=== PATIENT | female | born 1960 ===

== ENCOUNTER 2020-06-26 07:45 | Outpatient (REF) | payer OTHER, SELFPAY ==
--- NOTE | ~2020-06-26 | MM_ITS ---
EXAMINATION: MM SCREENING DIGITAL BREAST TOMOSYNTHESIS, BILATERAL CLINICAL INFORMATION: Screening. Asymptomatic. The lifetime risk of breast cancer based on the Tyrer-Cuzick Model is 5%. COMPARISON: Mammography: 06/21/2019, 03/04/2018, 02/05/2017 TECHNIQUE: Digital breast tomosynthesis is performed in both the craniocaudal and mediolateral oblique views along with computer-aided detection (CAD). Synthesized 2D images are generated from the tomosynthesis. FINDINGS: There are scattered areas of fibroglandular density (ACR BI-RADS breast composition Category b). There are no significant masses, abnormal calcifications, or other abnormalities. Parenchymal pattern is similar to prior studies. No significant changes. MM/MM tomosynthesis screening BI IMPRESSION: No mammographic evidence of malignancy. ASSESSMENT: BI-RADS 1: Negative RECOMMENDATION: Routine annual mammography screening. This patient's information was entered into a reminder system with a target due date for their next mammogram.
== END 2020-06-26 07:46 | disposition home or self-care (01) ==
LOC: HO.MAMMO 07:45
PROVIDERS: PCP Internal Medicine; Visit Provider Internal Medicine
DX: Z12.31 Encounter for screening mammogram for malignant neoplasm of breast (principal)
CPT/HCPCS: 77063; 77067

== ENCOUNTER 2020-08-09 07:35 | Outpatient (REF) | payer OTHER, SELFPAY ==
[2020-08-09 10:12] LABS: MANUAL DIFF FLAG NO
[2020-08-09 10:17] LABS: Basophils Percent Auto 0.4 % (0-2); Eosinophils Absolute Auto 0.2 X10*3/uL (0.0-0.4); Hematocrit 36.4 % (37-47); Hemoglobin 11.8 g/dl (12.0-16.0); Imm Gran Abs Auto 0.02 X10*3/uL (0.00-0.03); Imm Gran Pct Auto 0.3 % (0.0-0.4); Lymphocytes Absolute Auto 2.1 X10*3/uL (1.2-4.9); Lymphocytes Percent Auto 28.8 % (20-40); Mean Corpuscular HGB Conc 32.4 g/dl (31.0-35.0); Mean Corpuscular Volume 89.4 fL (80-98); Mean Platelet Volume 10.4 fL (9.4-12.3); Monocytes Absolute Auto 0.6 X10*3/uL (0.1-1.2); Monocytes Percent Auto 8.2 % (2-11); Neutrophils Absolute Auto 4.3 X10*3/uL (2.0-8.3); Neutrophils Percent Auto 59.3 % (45-73); Platelet Count 318 X10*3/uL (160-400); Red Blood Count 4.07 X10*6/uL (4.20-5.50); Red Cell Distribution Width 12.4 % (11.0-16.0); White Blood Count 7.3 X10*3/uL (4.8-10.8)
[2020-08-09 10:36] LABS: Alanine Aminotransferase 15 U/L (0-31); Albumin Level 4.2 g/dL (3.5-5.0); Alkaline Phosphatase 84 U/L (39-117); Anion Gap 11 (12-20); Aspartate Amino Transferase 18 U/L (5-31); Blood Urea Nitrogen 13 mg/dL (9-16); Calcium 9.3 mg/dL (8.4-10.2); Carbon Dioxide 27 mmol/L (22-29); Chloride 107 mmol/L (96-108); Cholesterol 135 mg/dL; Estimated Glomerular Filt Rate > 60; Glucose Random 91 mg/dL (60-115); HDL Cholesterol 43 mg/dL; LDL Cholesterol Calculated 78 mg/dl; Potassium 4.1 mmol/L (3.3-5.1); Sodium 141 mmol/L (135-145); Triglycerides 73 mg/dL
[2020-08-09 10:59] LABS: Free T4 (Free Thyroxine) 1.03 ng/dL (0.71-1.85); Vitamin D 25-OH Total 57.6 ng/mL (>30)
[2020-08-09 11:07] LABS: Folate > 20.0 ng/mL (> or = 4.0); Vitamin B12 1897 pg/mL (200-900)
== END 2020-08-09 07:36 | disposition home or self-care (01) ==
LOC: HO.10HDL 07:35
PROVIDERS: Visit Provider Internal Medicine
DX: E78.00 Pure hypercholesterolemia, unspecified (principal)
CPT/HCPCS: 36415; 80053; 80061; 82306; 82607; 82746; 84439; 84443; 85025

== ENCOUNTER 2020-08-14 13:32 | Outpatient (REF) | payer OTHER, SELFPAY ==
[2020-08-15 09:08] LABS: BV Int Neg Control Negative (Negative); BV Int Pos Control Positive (Positive)
== END 2020-08-14 13:33 | disposition home or self-care (01) ==
LOC: HO.LAB 13:32
PROVIDERS: Visit Provider Internal Medicine
DX: Z12.4 Encounter for screening for malignant neoplasm of cervix (principal)
CPT/HCPCS: 87480; 87510; 87660; 88142

== ENCOUNTER 2020-08-23 07:58 | Outpatient (REF) | payer OTHER, SELFPAY ==
--- NOTE | ~2020-08-23 | XR_ITS ---
EXAMINATION: XR SHOULDER, RIGHT CLINICAL INFORMATION: Adhesive capsulitis of unspecified shoulder. COMPARISON: Right shoulder 08/23/2020 TECHNIQUE: AP external rotation, Grashey, scapular Y, and axillary views of the right shoulder. FINDINGS: There is mild reduction of glenohumeral joint space without any visible acute fracture, dislocation or subluxation. Minimal spurring seen in the right AC joint. No loose bodies or bony erosive changes. No acute fracture or subluxation. XR/XR shoulder RT min 2V IMPRESSION: All loss of glenohumeral and AC joint space with periarticular spurring. No acute fracture, loose bodies or joint effusion suspected.
== END 2020-08-23 07:59 | disposition home or self-care (01) ==
LOC: HO.XRAY 07:58
PROVIDERS: PCP Internal Medicine; Visit Provider Internal Medicine
DX: M75.00 Adhesive capsulitis of unspecified shoulder (principal)
CPT/HCPCS: 73030

== ENCOUNTER 2020-08-26 08:12 | Outpatient (REF) | payer OTHER, SELFPAY ==
--- NOTE | ~2020-08-26 | XR_ITS ---
EXAMINATION: XR SHOULDER, RIGHT CLINICAL INFORMATION: Adhesive capsulitis of unspecified shoulder. COMPARISON: Right shoulder 08/23/2020 TECHNIQUE: AP external rotation, Grashey, scapular Y, and axillary views of the right shoulder. FINDINGS: There is mild reduction of glenohumeral joint space without any visible acute fracture, dislocation or subluxation. Minimal spurring seen in the right AC joint. No loose bodies or bony erosive changes. No acute fracture or subluxation. XR/XR shoulder RT min 2V IMPRESSION: All loss of glenohumeral and AC joint space with periarticular spurring. No acute fracture, loose bodies or joint effusion suspected.
== END 2020-08-26 08:13 | disposition home or self-care (01) ==
LOC: HO.HOSX 08:12
PROVIDERS: PCP Internal Medicine; Visit Provider Orthopaedic Surgery
DX: M75.01 Adhesive capsulitis of right shoulder (principal); M25.511 Pain in right shoulder; E66.3 Overweight; E78.00 Pure hypercholesterolemia, unspecified; E55.9 Vitamin D deficiency, unspecified; Z88.8 Allergy status to other drugs, medicaments and biological substances; Z68.26 Body mass index [BMI] 26.0-26.9, adult; Z98.51 Tubal ligation status
CPT/HCPCS: 20610; 73030; J1100

== ENCOUNTER 2020-09-27 08:26 | Outpatient (REF) | payer OTHER, SELFPAY ==
[2020-09-27 10:18] LABS: MANUAL DIFF FLAG NO
[2020-09-27 10:21] LABS: Basophils Percent Auto 0.4 % (0-2); Eosinophils Absolute Auto 0.5 X10*3/uL (0.0-0.4); Eosinophils Percent Auto 7.1 % (0-4); Hematocrit 36.3 % (37-47); Hemoglobin 11.9 g/dl (12.0-16.0); Imm Gran Abs Auto 0.01 X10*3/uL (0.00-0.03); Imm Gran Pct Auto 0.1 % (0.0-0.4); Immature Retic Fraction 4.9 % (3.0-15.9); Lymphocytes Absolute Auto 1.9 X10*3/uL (1.2-4.9); Lymphocytes Percent Auto 27.3 % (20-40); Mean Corpuscular HGB Conc 32.8 g/dl (31.0-35.0); Mean Corpuscular Hemoglobin 29.1 pg (27.0-33.0); Mean Corpuscular Volume 88.8 fL (80-98); Mean Platelet Volume 9.9 fL (9.4-12.3); Monocytes Absolute Auto 0.6 X10*3/uL (0.1-1.2); Monocytes Percent Auto 8.9 % (2-11); Neutrophils Absolute Auto 3.9 X10*3/uL (2.0-8.3); Neutrophils Percent Auto 56.2 % (45-73); Platelet Count 328 X10*3/uL (160-400); Red Blood Count 4.09 X10*6/uL (4.20-5.50); Red Cell Distribution Width 12.8 % (11.0-16.0); Retic HGB Equivalent 32.7 pg (30.0-35.0); Reticulocyte Percent 1.7 % (0.5-1.8); Reticulocytes Absolute 0.068 X10*6/uL (0.026-0.095)
[2020-09-27 10:45] LABS: Iron 64 mcg/dL (30-160); Percent Iron Saturation 22 % (15-50); Total Iron Binding Capacity 295 mcg/dL (228-428); Unsaturated Iron Binding 231 ug/dL
[2020-09-27 12:07] LABS: Ferritin 120 ng/mL (10-250)
== END 2020-09-27 08:27 | disposition home or self-care (01) ==
LOC: HO.LAB 08:26
PROVIDERS: PCP Internal Medicine; Visit Provider Internal Medicine
DX: D64.9 Anemia, unspecified (principal)
CPT/HCPCS: 36415; 82728; 83540; 85025; 85045

== ENCOUNTER 2020-10-25 08:00 | Outpatient (RCR) | payer OTHER, SELFPAY ==
--- NOTE | 2020-09-09 16:51 | MHC.PT.EP ---
[facility] [place] Office [place] Office [place] Office [address] [phone] F: [phone] F: [phone] F: [phone] F: [phone] Physical Therapy Plan of Care Date of Evaluation: Date of Surgery: NA Diagnosis: RIGHT ADHESIVE CAPSULITIS Assessment: KEYANNA IS A PLEASANT 59 YO FEMALE WITH S/S CONSISTENT WITH ADHESIVE CAPSULITIS. UPON EXAM SHE DEMONSTRATES DECREASED ROM, DECREASED STRENGTH, ALTERED POSTURE AND POSITIONING, INCREASED PAIN. FUNCTIONAL LIMITATION INCLUDE DECREASED ABILITY TO PERFORM LIFTING, REACHING, PUSHING AND PULLING, SHE REPORTS DECREASED PARTICIPATION IN COMMUNITY AND RECREATIONAL TASKS. SHE REPORTS DISRUPTED SLEEP. 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 Manual therapy to restore motion and function. Therapeutic exercise to improve strength and flexibility. Neuromuscular re-education for posture and balance. Therapeutic activities to return to functional activities of daily living. Electronically signed by: LAUREN AGUILAR PT, DPT Please sign and return to therapist. Thank you for your referral.
--- NOTE | 2020-11-15 08:31 | MHC.PT.DC ---
[facility] [place] Office [place] Office [place] Office [address]im [address]vez [address] [phone] F: [phone] F: [phone] F: [phone] F: [phone] Physical Therapy Discharge Report Diagnosis: RIGHT ADHESIVE CAPSULITIS Date of Surgery: NA Date of Evaluation: 09/09/20 Date of Discharge: 10/18/20 Treatments to Date: 11 Cancellations to Date: 0 No Shows to Date: 0 Discharge Status: Achieved Goals Improved Function Independent with HEP Discharge Summary: Adrienne progressed well in PT with shoulder ROM WNLs and significantly improved strength. She demonstrates independence with her home program and is able to self manage residual symptoms. She is discharged at this time. Electronically signed by: Kaity Zuleta PT, DPT Please sign and return to therapist. Thank you for your referral.
== END 2020-11-15 08:33 | disposition home or self-care (01) ==
LOC: HO.PT 08:00
PROVIDERS: PCP Internal Medicine; Visit Provider Orthopaedic Surgery
DX: M75.00 Adhesive capsulitis of unspecified shoulder (principal)
CPT/HCPCS: 97110; 97140; 97162; 97530

== ENCOUNTER 2021-07-11 07:48 | Outpatient (REF) | payer OTHER, SELFPAY ==
--- NOTE | ~2021-07-11 | MM_ITS ---
EXAMINATION: MM SCREENING DIGITAL BREAST TOMOSYNTHESIS, BILATERAL CLINICAL INFORMATION: Screening. Asymptomatic. The lifetime risk of breast cancer based on the Tyrer-Cuzick Model is 6%. COMPARISON: Mammography: 06/26/2020, 06/21/2019, 03/04/2018 TECHNIQUE: Digital breast tomosynthesis is performed in both the craniocaudal and mediolateral oblique views along with computer-aided detection (CAD). Synthesized 2D images are generated from the tomosynthesis. FINDINGS: There are scattered areas of fibroglandular density (ACR BI-RADS breast composition Category b). There are no significant masses, abnormal calcifications, or other abnormalities. The axilla and skin contours are unremarkable. No significant changes. MM/MM tomosynthesis screening BI IMPRESSION: No mammographic evidence of malignancy. ASSESSMENT: BI-RADS 1: Negative RECOMMENDATION: Routine annual mammography screening. This patient's information was entered into a reminder system with a target due date for their next mammogram.
== END 2021-07-11 07:49 | disposition home or self-care (01) ==
LOC: HO.MAMMO 07:48
PROVIDERS: PCP Internal Medicine; Visit Provider Internal Medicine
DX: Z12.31 Encounter for screening mammogram for malignant neoplasm of breast (principal)
CPT/HCPCS: 77063; 77067

== ENCOUNTER 2021-09-05 08:57 | Outpatient (REF) | payer OTHER, SELFPAY ==
[2021-09-05 09:32] LABS: MANUAL DIFF FLAG NO
[2021-09-05 09:50] LABS: Basophils Percent Auto 0.6 % (0-2); Eosinophils Absolute Auto 0.3 X10*3/uL (0.0-0.4); Hematocrit 39.7 % (37.0-47.0); Hemoglobin 12.9 g/dl (12.0-16.0); Imm Gran Abs Auto 0.02 X10*3/uL (0.00-0.03); Imm Gran Pct Auto 0.3 % (0.0-0.4); Immature Retic Fraction 5.6 % (3.0-15.9); Lymphocytes Percent Auto 29.2 % (20-40); Mean Corpuscular HGB Conc 32.5 g/dl (31.0-35.0); Mean Corpuscular Hemoglobin 28.5 pg (27.0-33.0); Mean Corpuscular Volume 87.6 fL (80.0-98.0); Mean Platelet Volume 9.5 fL (9.4-12.3); Monocytes Absolute Auto 0.4 X10*3/uL (0.1-1.2); Monocytes Percent Auto 6.5 % (2-11); Neutrophils Absolute Auto 3.9 x10*3/uL (2.0-8.3); Neutrophils Percent Auto 58.4 % (45-73); Platelet Count 327 X10*3/uL (160-400); Red Blood Count 4.53 X10*6/uL (4.20-5.50); Red Cell Distribution Width 12.1 % (11.0-16.0); Retic HGB Equivalent 33.4 pg (30.0-35.0); Reticulocyte Percent 1.5 % (0.5-1.8); White Blood Count 6.7 X10*3/uL (4.8-10.8)
[2021-09-05 10:40] LABS: Alanine Aminotransferase 22 U/L (0-31); Albumin Level 4.4 g/dL (3.5-5.0); Alkaline Phosphatase 87 U/L (39-117); Anion Gap 13 (12-20); Aspartate Amino Transferase 19 U/L (5-31); Bilirubin Total 0.8 mg/dL (0.0-1.0); Blood Urea Nitrogen 12 mg/dL (9-16); Calcium 9.9 mg/dL (8.4-10.2); Carbon Dioxide 26 mmol/L (22-29); Chloride 105 mmol/L (96-108); Cholesterol 148 mg/dL; Estimated Glomerular Filt Rate > 60; Glucose Random 103 mg/dL (60-115); HDL Cholesterol 41 mg/dL; Iron 79 mcg/dL (30-160); LDL Cholesterol Calculated 91 mg/dl; Percent Iron Saturation 24 % (15-50); Potassium 4.6 mmol/L (3.3-5.1); Sodium 139 mmol/L (135-145); Total Iron Binding Capacity 325 mcg/dL (228-428); Total Protein 7.8 g/dL (6.5-8.0); Triglycerides 80 mg/dL; Unsaturated Iron Binding 246 ug/dL
[2021-09-05 10:51] LABS: Ferritin 147 ng/mL (10-250); Free T4 (Free Thyroxine) 1.09 ng/dL (0.71-1.85); Thyroid Stimulating Hormone 1.56 uIU/mL (0.32-4.0); Vitamin D 25-OH Total 33.8 ng/mL (>30)
[2021-09-05 11:14] LABS: Folate > 20.0 ng/mL (> or = 4.0); Vitamin B12 860 pg/mL (200-900)
== END 2021-09-05 08:58 | disposition home or self-care (01) ==
LOC: HO.LAB 08:57
PROVIDERS: PCP Internal Medicine; Visit Provider Internal Medicine
DX: E78.00 Pure hypercholesterolemia, unspecified (principal); D64.9 Anemia, unspecified
CPT/HCPCS: 36415; 80053; 80061; 82306; 82607; 82728; 82746; 83540; 84439; 84443; 85025; 85045

== ENCOUNTER 2021-10-01 13:12 | Outpatient (REF) | payer OTHER, SELFPAY ==
--- NOTE | ~2021-10-01 | US_ITS ---
EXAMINATION: US SOFT TISSUE HEAD/NECK CLINICAL INFORMATION: Localized swelling, mass and lump, neck. COMPARISON: CT soft tissue neck without contrast 04/01/2017. TECHNIQUE: Linear transducer grayscale and color Doppler examination of the right side neck, behind the ear, indicated by the patient. FINDINGS: In region of where patient points out lump behind the right ear, there are noted to be 2 lymph nodes with one measuring 5 x 3 x 2 mm in size and a second one measuring 3 x 3 x 4 mm in size without evidence of cortical thickening or lobulation. Vascular pedicles are seen. US/US soft tiss head and/or neck IMPRESSION: Palpable abnormalities behind the right ear appear to represent normal-appearing lymph nodes.
== END 2021-10-01 13:13 | disposition home or self-care (01) ==
LOC: HO.US 13:12
PROVIDERS: Visit Provider Internal Medicine
DX: R22.1 Localized swelling, mass and lump, neck (principal)
CPT/HCPCS: 76536

== ENCOUNTER 2022-07-17 07:44 | Outpatient (REF) | payer OTHER, SELFPAY ==
--- NOTE | ~2022-07-17 | MM_ITS ---
EXAMINATION: MM SCREENING DIGITAL BREAST TOMOSYNTHESIS, BILATERAL CLINICAL INFORMATION: Screening. Asymptomatic. The lifetime risk of breast cancer based on the Tyrer-Cuzick Model is 5.7%. COMPARISON: Mammography: July 11, 2021 and studies dating back to January 29, 2016 TECHNIQUE: Digital breast tomosynthesis is performed in both the craniocaudal and mediolateral oblique views along with computer-aided detection (CAD). Synthesized 2D images are generated from the tomosynthesis. FINDINGS: The breasts are heterogeneously dense, which may obscure small masses (ACR BI-RADS breast composition Category c). There are no significant masses, abnormal calcifications, or other abnormalities. MM/MM tomosynthesis screening BI IMPRESSION: No significant changes ASSESSMENT: BI-RADS 1: Negative RECOMMENDATION: Routine annual mammography screening. This patient's information was entered into a reminder system with a target due date for their next mammogram.
== END 2022-07-17 07:45 | disposition home or self-care (01) ==
LOC: HO.MAMMO 07:44
PROVIDERS: Visit Provider Internal Medicine
DX: Z12.31 Encounter for screening mammogram for malignant neoplasm of breast (principal)
CPT/HCPCS: 77063; 77067

== ENCOUNTER → 2022-09-11 07:44 | Outpatient (REF) | payer OTHER, SELFPAY ==
--- NOTE | 2022-09-11 07:48 | CA_ITS ---
Acquisition Time: 2022-09-11 08:05:39 Total Exercise Time: 00:05:37 Test Indications: CP Medications: SEE H Protocol: HARVEY Max HR: 151 BPM 94% of Pred: 160 BPM Max BP: 152/072 mmHG Max Work Load: 7.0 METS Exercise stress test with exercise 5 min 37 sec of Harvey protocol, achieving 94% MPHR, 7 METs, with mild sob, no chest discomfort, with isolated PVCs, with normotensive response to exercise, without changes meeting criteria for ischemia. Test reviewed with Dr Barrios Referred By: Za Dsouza Overread By: SHADI MAY
== END ==
LOC: HO.CARD 07:44
PROVIDERS: PCP Internal Medicine; Visit Provider Internal Medicine
DX: R07.9 Chest pain, unspecified (principal)
CPT/HCPCS: 93017

== ENCOUNTER 2022-11-06 14:44 | Outpatient (AMB) | payer OTHER, SELFPAY ==
[2022-11-06 14:49] VITALS: BP 124/78; PULSE 75; O2SAT 98; BMI 26.9
--- NOTE | 2022-11-06 14:49 | A.OFFPC_ITS ---
Vital Signs 11/06/22 14:49 Height 5 ft 2 in Weight 147 lb BMI 26.9 BP 124/78 Blood Pressure Location Lt brachial Position Sitting Pulse 75 Pulse Source Pulse Oximeter Pulse Oximetry (%) 98 Oxygen Delivery Method Room Air Intake Visit Reasons: Hypercholesterolemia chest pain Allergies simvastatin Allergy (Unknown, Verified 11/06/22 14:49) swelling Medication List - Last Reconciled 11/06/22 by Za Dsouza MD atorvastatin 20 mg PO DAILY multivitamin 1 tab PO DAILY [id number]-[id number] 3.5-10,000-1 mg/mL-unit/mL-% 4 drps otic (ear) right Q8H 10 days Tobacco use date assessed: 09/04/22 Dental Screening Dental Screen Date: 11/06/22 Did you have a dental visit in the last 12 months?: Yes Did you have a dental problem in the last 6 months where you did not have access to dental care?: No Was dental information given to patient?: Patient has dentist HPI Hypercholesterolemia chest pain HPI Details 62-year-old overweight female with hypercholesterolemia having chest pains seen last in September 2022 for physical exam. Workup was requested showing normal blood sugar, vitamin B12 normal renal function normal electrolytes liver function, cholesterol LDL of 76 normal thyroid number normal vitamin-D and normal blood count hemoglobin A1c is normal so stress test revealing negative results [facility] Medical History (Updated 11/06/22 @ 14:54 by Za Dsouza MD) Anemia Cervical cancer screening Frozen shoulder Hypercholesterolemia Neck mass Otitis externa Otitis externa of right ear Overweight (BMI 25.0-29.9) Vitamin D deficiency Surgical History H/O eye surgery H/O tubal ligation History of delivery Family History (Updated 09/04/22 @ 10:01 by Erma Davidson CMA) Father Myocardial infarct Maternal Uncle Myocardial infarct Social History (Updated 08/26/20 @ 08:34 by CHANCE Murphy) Housing: House Alcohol intake: never Patient Tobacco Use Status: Never used Tobacco e-Cigarette/Vaping Use: Never Used Second Hand Smoke Exposure: No service: No Current occupational status: employed Current occupation: left handed Cognitive needs: No Hearing needs: No Vision needs: No Questionnaire PHQ-9 Over the last 2 weeks, how often have you been bothered by any of the following problems? 1. Little interest or pleasure in doing things: not at all 2. Feeling down, depressed, or hopeless: not at all 3. Trouble falling or staying asleep, or sleeping too much: not at all 4. Feeling tired or having little energy: not at all 5. Poor appetite or overeating: not at all 6. Feeling bad about yourself - or that you are a failure or have let yourself or your family down: not at all 7. Trouble concentrating on things, such as reading the newspaper or watching television: not at all 8. Moving or speaking so slowly that other people could have noticed. Or the opposite - being so fidgety or restless that you have been moving around a lot more than usual: not at all 9. Thoughts that you would be better off or of hurting yourself in some way: not at all Total score: 0 Depression Screening Interpretation: Negative Source: Developed by Drs. Milton Murdock, Quintin Corona and colleagues, with an educational joanne from [employer]. Thrive Questionnaire Date Thrive assessed: 09/04/22 AUDIT C Alcohol Use Questionnaire (AUDIT-C) 1. How often do you have a drink containing alcohol?: Never 2. How many drinks containing alcohol do you have on a typical day when you are drinking?: 1 or 2 3. How often do you have six or more drinks on one occasion?: Never Total Score: 0 CHILANGO-7 AMB Questionnaire CHILANGO-7 Date CHILANGO - 7 assessed: 09/04/22 Source: Developed by Drs. Milton Murdock, Quintin Corona and colleagues, with an educational joanne from [employer]. Physical exam (Primary Care) Vital Signs: Last Vital Signs Pulse 75 11/06/22 14:49 BP 124/78 11/06/22 14:49 Pulse Ox 98 11/06/22 14:49 Oxygen Delivery Method Room Air 11/06/22 14:49 BMI result Body Mass Index 26.9 Tobacco/Smoking Status: Tobacco use Status Tobacco use date assessed 09/04/22 11/06/22 14:52 Patient Tobacco Use Status Never used Tobacco 11/06/22 14:52 e-Cigarette/Vaping Use Never Used 11/06/22 14:52 PHQ-9: PHQ-9 Score PHQ-9: Total score 0 11/06/22 14:52 Depression Screening Interpretation: Negative Thrive Assessment: Date of Thrive Assessment Date Thrive assessed 09/04/22 11/06/22 14:52 Const General: alert; No acute distress Eyes Conjunctivae: conjunctivae normal Resp Auscultation: clear to auscultation bilaterally Cardio Rate: regular rate Rhythm: regular rhythm GI Inspection: Yes normal to inspection Extrem General: Yes normal to inspection and No edema Assessment and Plan Assessment & Plan (1) Overweight (BMI 25.0-29.9): Code(s): E66.3 - Overweight Plan: Continue with diet and exercise (2) Hypercholesterolemia: Code(s): E78.00 - Pure hypercholesterolemia, unspecified Plan: Avoid fried foods, chicken skin, eggs, butter margarine, pastries and meat. Be it pork or beef they have a lot of cholesterol patient is on atorvastatin 20 mg once a day LDL goal of less than 130 and triglyceride of less than 150 (3) Chest pain: Comment: Stress test 2022- Code(s): R07.9 - Chest pain, unspecified Plan: Stress test done revealing negative results Coding Level of Care Code Est Pt Level 4 (34493) Diagnoses Overweight (BMI 25.0-29.9) E66.3 Hypercholesterolemia E78.00 Chest pain R07.9
== END 2022-11-06 14:58 | disposition home or self-care (01) ==
PROVIDERS: PCP Internal Medicine; Visit Provider Internal Medicine
DX: E66.3 Overweight (principal); E78.00 Pure hypercholesterolemia, unspecified; R07.9 Chest pain, unspecified
CPT/HCPCS: 99214

== ENCOUNTER 2023-07-30 08:11 | Outpatient (REF) | payer OTHER, SELFPAY | END 2023-07-30 08:12 | disposition home or self-care (01) | LOC: HO.MAMMO 08:11 | PROVIDERS: PCP Internal Medicine; Visit Provider Internal Medicine | DX: Z12.31 Encounter for screening mammogram for malignant neoplasm of breast (principal) | CPT/HCPCS: 77063; 77067 ==

== ENCOUNTER → 2023-07-30 08:30 | Outpatient (BNV) | payer OTHER, SELFPAY | PROVIDERS: PCP Internal Medicine; Visit Provider Radiology Diagnostic Radiology | DX: Z12.31 Encounter for screening mammogram for malignant neoplasm of breast (principal) | CPT/HCPCS: 77063; 77067 ==

== ENCOUNTER 2023-09-10 10:12 | Outpatient (AMB) | payer OTHER, SELFPAY ==
--- NOTE | 2023-09-10 10:45 | MHC.PC.OV ---
Vital Signs 09/10/23 10:46 Height 5 ft 2 in Weight 149 lb BMI 27.2 BP 128/70 Blood Pressure Location Lt brachial Position Sitting Pulse 73 Pulse Source Pulse Oximeter Pulse Oximetry (%) 98 Oxygen Delivery Method Room Air Intake Visit Reasons: Annual exam Allergies simvastatin Allergy (Unknown, Verified 09/10/23 10:46) swelling Medication List - Last Reconciled 09/10/23 by Za Dsouza MD atorvastatin 20 mg PO DAILY multivitamin 1 tab PO DAILY Tobacco use date assessed: 09/10/23 Dental Screening Dental Screen Date: 09/10/23 Did you have a dental visit in the last 12 months?: Yes Did you have a dental problem in the last 6 months where you did not have access to dental care?: No Was dental information given to patient?: Patient has dentist HPI Annual exam HPI Details 62-year-old overweight female coming in for physical exam has a history of hypercholesterolemia. Patient's mammogram is up-to-date colonoscopy last done in June 2013. Patient is due. Patient denies any dysuria or frequency and denies bowel symptoms. Patient does not complain of any vaginal discharge also [facility] Medical History (Updated 09/10/23 @ 11:52 by Za Dsouza MD) Otitis externa of right ear Neck mass Frozen shoulder Cervical cancer screening Anemia Overweight (BMI 25.0-29.9) Otitis externa Vitamin D deficiency Hypercholesterolemia Surgical History H/O eye surgery H/O tubal ligation History of delivery Family History (Updated 09/04/22 @ 10:01 by Erma Davidson CMA) Father Myocardial infarct Maternal Uncle Myocardial infarct Social History (Updated 08/26/20 @ 08:34 by CHANCE Murphy) Housing: House Alcohol intake: never Patient Tobacco Use Status: Never used Tobacco e-Cigarette/Vaping Use: Never Used Second Hand Smoke Exposure: No service: No Current occupational status: employed Current occupation: left handed Cognitive needs: No Hearing needs: No Vision needs: Yes Questionnaire PHQ-9 Over the last 2 weeks, how often have you been bothered by any of the following problems? 1. Little interest or pleasure in doing things: not at all 2. Feeling down, depressed, or hopeless: not at all 3. Trouble falling or staying asleep, or sleeping too much: not at all 4. Feeling tired or having little energy: not at all 5. Poor appetite or overeating: not at all 6. Feeling bad about yourself - or that you are a failure or have let yourself or your family down: not at all 7. Trouble concentrating on things, such as reading the newspaper or watching television: not at all 8. Moving or speaking so slowly that other people could have noticed. Or the opposite - being so fidgety or restless that you have been moving around a lot more than usual: not at all 9. Thoughts that you would be better off or of hurting yourself in some way: not at all Total score: 0 Depression Screening Interpretation: Negative Depression Screening Done: Yes Source: Developed by Drs. Milton Murdock, Era Yarbrough, Quintin Celaya and colleagues, with an educational joanne from [employer]. Thrive Questionnaire Date Thrive assessed: 09/10/23 I am a: Patient What is your living situation today?: I have a steady place to live Within the past 12 months, did the food you bought not last and you didn't have the money to get more?: Never true Within the past 12 months, did you worry whether your food would run out before you got money to buy more?: Never true Do you have trouble paying for medicines?: No Do you have trouble getting transportation to medical appointments?: No Do you have trouble paying your heating and electricity bill?: No Do you have trouble taking care of your child, family member or friend?: No Do you have trouble with day-to-day activities such as bathing, preparing meals, shopping, managing finances, etc.?: No Are you currently unemployed and looking for a job?: No Are you interested in more education?: No Currently or been in a relationship where the following occur: no concerns reported THRIVE Score: 0 AUDIT C Alcohol Use Questionnaire (AUDIT-C) 1. How often do you have a drink containing alcohol?: Never 2. How many drinks containing alcohol do you have on a typical day when you are drinking?: 1 or 2 3. How often do you have six or more drinks on one occasion?: Never Total Score: 0 CHILANGO-7 AMB Questionnaire CHILANGO-7 Date CHILANGO - 7 assessed: 09/10/23 Feeling nervous, anxious, or on edge: 0 = Not at all Not being able to stop or control worryin = Not at all Worrying too much about different things: 0 = Not at all Trouble relaxin = Not at all Being so restless that it is hard to sit still: 0 = Not at all Becoming easily annoyed or irritable: 0 = Not at all Feeling afraid as if something awful might happen: 0 = Not at all Total CHILANGO-7 score (0-4 normal; 5-9 mild; 10-14 moderate; 15-21 severe): 0 Source: Developed by Drs. Milton Murdock, Era Yarbrough, Quintin Celaya and colleagues, with an educational joanne from [employer]. Review of Systems Const Denies poor appetite and Denies weakness Eyes Denies no additional complaints ENT Reports Normal hearing present, Denies dizziness, Denies nasal congestion, Denies tinnitus and Denies sore throat Card Denies chest pain, Denies syncope, Denies rapid heart rate and Denies dyspnea Resp Denies cough and Denies dyspnea GI Denies change in stool character, Reports constipation, Denies diarrhea, Denies nausea and Denies vomiting Denies urinary frequency, Denies difficulty voiding and Denies dysuria Neuro Reports Normal hearing present, Denies confusion, Denies dizziness, Denies syncope and Denies weakness Psych Denies confusion Physical exam (Primary Care) Vital Signs: Last Vital Signs Pulse 73 09/10/23 10:46 BP 128/70 09/10/23 10:46 Pulse Ox 98 09/10/23 10:46 Oxygen Delivery Method Room Air 09/10/23 10:46 BMI result Body Mass Index 27.2 Tobacco/Smoking Status: Tobacco use Status Tobacco use date assessed 09/10/23 09/10/23 10:53 Patient Tobacco Use Status Never used Tobacco 09/10/23 10:53 e-Cigarette/Vaping Use Never Used 09/10/23 10:53 PHQ-9: PHQ-9 Score PHQ-9: Total score 0 09/10/23 11:43 Depression Screening Interpretation: Negative Thrive Assessment: Date of Thrive Assessment Date Thrive assessed 09/10/23 09/10/23 10:53 Currently or been in a relationship where the following occur: no concerns reported Const General: No confusion Orientation/consciousness: No confusion HENMT Head: Yes normocephalic Ears: external ears normal and TM's normal bilaterally Face and sinus: Yes normal facial exam Mouth: moist mucous membranes Throat: Yes tonsils normal Eyes Conjunctivae: conjunctivae normal Pupils: Equal, round and reactive pupils present and Pupil accommodation reflex normal Direct Ophthalmoscopy: normal light reflex Neck Neck: No lymphadenopathy Thyroid: Thyroid normal Chest Chest palpation & inspection: normal inspection of the chest Resp Effort & Inspection: normal respiratory effort and no audible wheezes Auscultation: clear to auscultation bilaterally, no crackles, no wheezes and lung sounds not diminished Cardio Rate: regular rate Rhythm: regular rhythm Peripheral pulses: radial pulses present and dorsalis pedis present GI Other: On the lower abdominal area no rebound no guarding Palpation (GI): no masses Auscultation: normal bowel sounds and normoactive bowel sounds Rectal Exam - Female: deferred Skin General skin exam: no rashes or lesions noted Rashes: no rashes Neuro General: No confusion Cranial nerves: Yes Equal, round and reactive pupils present and Yes Normal hearing present Cognition (Neuro): normal cognition Gait exam (Neuro): Normal gait present Motor exam (neuro): 5/5 motor strength present throughout Deep tendon reflexes (DTR's): Right brachioradialis reflex intensity grade: 2+, Left brachioradialis reflex intensity grade: 2+, Right patellar reflex intensity grade: 2+ and Left patellar reflex intensity grade: 2+ Extrem General: No edema Results AMB Urinalysis, Automated UA Leukoctes 70 Chrsi/uL Last Edit by Erma Davidson CMA on 09/10/23 12:13 UA Nitrite Negative Last Edit by Erma Davidson CMA on 09/10/23 12:13 UA Urobilinogen 0.2 mg/dL Last Edit by Erma Davidson CMA on 09/10/23 12:13 UA Protein 0 mg/dL Last Edit by Erma Davidson CMA on 09/10/23 12:13 UA pH 6.0 Last Edit by Erma Davidson CMA on 09/10/23 12:13 UA Blood 0 Jossue/uL Last Edit by Erma Davidson CMA on 09/10/23 12:13 UA Specific Robert 1.010 Last Edit by Erma Davidson CMA on 09/10/23 12:13 UA Ketone Negative Last Edit by Erma Davidson CMA on 09/10/23 12:13 UA Bilirubin 0 mg/dL Last Edit by Erma Davidson CMA on 09/10/23 12:13 UA Glucose 0 mg/dL Last Edit by Erma Davidson CMA on 09/10/23 12:13 Assessment and Plan Assessment & Plan (1) Annual physical exam: Code(s): Z00.00 - Encounter for general adult medical examination without abnormal findings Plan: Patient is advised to eat healthy, keep well hydrated, keep active and have adequate sleep. (2) Overweight (BMI 25.0-29.9): Code(s): E66.3 - Overweight Plan: Diet and exercise (3) Hypercholesterolemia: Code(s): E78.00 - Pure hypercholesterolemia, unspecified Plan: Avoid fried foods, chicken skin, eggs, butter margarine, pastries and meat. Be it pork or beef they have a lot of cholesterol LDL goal of less than 130 and triglyceride of less than 150. (4) Colon cancer screening: Code(s): Z12.11 - Encounter for screening for malignant neoplasm of colon (5) Pelvic pain: Code(s): R10.2 - Pelvic and perineal pain Orders: Orders Complete Blood Count Auto Diff Today E78.00 - Pure hypercholesterolemia, unspecified Free T4 (Free Thyroxine) Today E78.00 - Pure hypercholesterolemia, unspecified Vitamin D 25-OH Total Today E78.00 - Pure hypercholesterolemia, unspecified US pelvic and transvaginal Today Z12.11 - Encounter for screening for malignant neoplasm of colon AMB Urinalysis Automated Today Z12.11 - Encounter for screening for malignant neoplasm of colon, Z13.9 - Encounter for screening, unspecified Comprehensive Met. Panel Today E78.00 - Pure hypercholesterolemia, unspecified Thyroid Stimulating Hormone Today E78.00 - Pure hypercholesterolemia, unspecified Lipid Panel Today E78.00 - Pure hypercholesterolemia, unspecified Vitamin B12 and Folate Today E78.00 - Pure hypercholesterolemia, unspecified Referrals Gastroenterology Referral Z12.11 - Encounter for screening for malignant neoplasm of colon Medications: New nitrofurantoin monohyd/m-cryst 100 mg (Macrobid) must administer with a meal/food 100 mg PO Q12H 7 days 14 caps 0RF E78.00 - Pure hypercholesterolemia, unspecified Refilled atorvastatin 20 mg PO DAILY 90 tabs 3RF E78.00 - Pure hypercholesterolemia, unspecified Coding Level of Care Code Est Pt Prev Care 40-64y(25886) Diagnoses Annual physical exam Z00.00 Overweight (BMI 25.0-29.9) E66.3 Hypercholesterolemia E78.00 Colon cancer screening Z12.11 Pelvic pain R10.2
[2023-09-10 10:46] VITALS: BP 128/70; PULSE 73; O2SAT 98; BMI 27.2
== END 2023-09-10 12:00 | disposition home or self-care (01) ==
PROVIDERS: PCP Internal Medicine; Visit Provider Internal Medicine
DX: Z00.00 Encounter for general adult medical examination without abnormal findings (principal); E66.3 Overweight; E78.00 Pure hypercholesterolemia, unspecified; Z12.11 Encounter for screening for malignant neoplasm of colon; R10.2 Pelvic and perineal pain
CPT/HCPCS: 81003; 99396

== ENCOUNTER 2024-08-24 11:27 | Outpatient (REF) | payer OTHER, SELFPAY | END 2024-08-24 11:28 | disposition home or self-care (01) | LOC: HO.MAMMO 11:27 | PROVIDERS: PCP Internal Medicine; Visit Provider Internal Medicine | DX: Z12.31 Encounter for screening mammogram for malignant neoplasm of breast (principal) | CPT/HCPCS: 77063; 77067 ==

== ENCOUNTER → 2024-08-24 12:00 | Outpatient (BNV) | payer OTHER, SELFPAY | PROVIDERS: PCP Internal Medicine; Visit Provider Internal Medicine | DX: Z12.31 Encounter for screening mammogram for malignant neoplasm of breast (principal) | CPT/HCPCS: 77063; 77067 ==

== ENCOUNTER 2024-09-15 09:39 | Outpatient (AMB) | payer OTHER, SELFPAY ==
--- NOTE | 2024-09-15 09:50 | MHC.PC.OV ---
Vital Signs 09/15/24 09:51 Height 5 ft 2 in Weight 148 lb 2 oz BMI 27.1 BP 120/68 Blood Pressure Location Lt brachial Position Sitting Pulse 73 Pulse Source Pulse Oximeter Temp 97.3 F Temp Source Temporal Artery Scan Pulse Oximetry (%) 97 Oxygen Delivery Method Room Air Intake Visit Reasons: PE Intake Note: Patient is here today for a physical. Digital Research Analyst Required: No Offshore Wind Operations Manager: Not Required per policy Accompanied by: Self / Same As Patient Allergies simvastatin Allergy (Unknown, Verified 09/15/24 09:51) swelling Medication List - Last Reconciled 09/15/24 by Za Dsouza MD atorvastatin 20 mg PO DAILY multivitamin 1 tab PO DAILY Tobacco use date assessed: 09/15/24 Dental Screening Dental Screen Date: 09/15/24 Did you have a dental visit in the last 12 months?: Yes Did you have a dental problem in the last 6 months where you did not have access to dental care?: No Was dental information given to patient?: Patient has dentist HPI PE HPI Details 64-year-old overweight female with a history of hypercholesterolemia and adnexal mass coming in for physical exam. Patient was seen last year noted to have an adnexal mass and was referred to Gynecology as well as a follow-up MR. Patient states has seen Gynecology and was told that this is not a problem. And this was confirmed by asking the patient again. Otherwise here for physical exam [facility] Medical History (Updated 10/18/23 @ 18:07 by Za Dsouza MD) Otitis externa of right ear Neck mass Frozen shoulder Cervical cancer screening Anemia Overweight (BMI 25.0-29.9) Otitis externa Vitamin D deficiency Hypercholesterolemia Surgical History H/O eye surgery H/O tubal ligation History of delivery Family History Father Myocardial infarct Maternal Uncle Myocardial infarct Social History Housing: House Alcohol intake: never Patient Tobacco Use Status: Never used Tobacco e-Cigarette/Vaping Use: Never Used Second Hand Smoke Exposure: No service: No Current occupational status: employed Current occupation: left handed Cognitive needs: No Hearing needs: No Vision needs: Yes (Glasses) Questionnaire PHQ-9 Over the last 2 weeks, how often have you been bothered by any of the following problems? 1. Little interest or pleasure in doing things: not at all 2. Feeling down, depressed, or hopeless: not at all 3. Trouble falling or staying asleep, or sleeping too much: not at all 4. Feeling tired or having little energy: not at all 5. Poor appetite or overeating: not at all 6. Feeling bad about yourself - or that you are a failure or have let yourself or your family down: not at all 7. Trouble concentrating on things, such as reading the newspaper or watching television: not at all 8. Moving or speaking so slowly that other people could have noticed. Or the opposite - being so fidgety or restless that you have been moving around a lot more than usual: not at all 9. Thoughts that you would be better off or of hurting yourself in some way: not at all Total score: 0 Depression Screening Interpretation: Negative Depression Screening Done: Yes Source: Developed by Drs. Milton Murdock, Era Yarbrough, Quintin Celaya and colleagues, with an educational joanne from [employer]. Thrive Questionnaire Date Thrive assessed: 09/15/24 I am a: Patient What is your living situation today?: I have a steady place to live Within the past 12 months, did the food you bought not last and you didn't have the money to get more?: I choose not to answer this question Within the past 12 months, did you worry whether your food would run out before you got money to buy more?: I choose not to answer this question Do you have trouble paying for medicines?: No Do you have trouble getting transportation to medical appointments?: No Do you have trouble paying your heating and electricity bill?: No Do you have trouble taking care of your child, family member or friend?: No Do you have trouble with day-to-day activities such as bathing, preparing meals, shopping, managing finances, etc.?: No Are you currently unemployed and looking for a job?: I choose not to answer this question Are you interested in more education?: I choose not to answer this question Please select the resources that you would like help with: None Currently or been in a relationship where the following occur: I choose not to answer THRIVE Score: 0 AUDIT C Alcohol Use Questionnaire (AUDIT-C) 1. How often do you have a drink containing alcohol?: Never Total Score: 0 CHILANGO-7 AMB Questionnaire CHILANGO-7 Date CHILANGO - 7 assessed: 09/15/24 Feeling nervous, anxious, or on edge: 0 = Not at all Not being able to stop or control worryin = Not at all Worrying too much about different things: 0 = Not at all Trouble relaxin = Not at all Being so restless that it is hard to sit still: 0 = Not at all Becoming easily annoyed or irritable: 0 = Not at all Feeling afraid as if something awful might happen: 0 = Not at all Total CHILANGO-7 score (0-4 normal; 5-9 mild; 10-14 moderate; 15-21 severe): 0 Source: Developed by Drs. Milton Murdock, Era Yarbrough, Quintin Celaya and colleagues, with an educational joanne from [employer]. Review of Systems Const Denies poor appetite and Denies weakness Eyes Denies no additional complaints ENT Reports Normal hearing present, Denies dizziness, Denies nasal congestion, Denies tinnitus and Denies sore throat Card Denies chest pain, Denies syncope, Denies rapid heart rate and Denies dyspnea Resp Denies cough and Denies dyspnea GI Denies change in stool character, Reports constipation, Denies diarrhea, Denies nausea and Denies vomiting Denies urinary frequency, Denies difficulty voiding and Denies dysuria Neuro Reports Normal hearing present, Denies confusion, Denies dizziness, Denies syncope and Denies weakness Psych Denies confusion Physical exam (Primary Care) Vital Signs: Last Vital Signs Temp 97.3 F 09/15/24 09:51 Pulse 73 09/15/24 09:51 BP 120/68 09/15/24 09:51 Pulse Ox 97 09/15/24 09:51 Oxygen Delivery Method Room Air 09/15/24 09:51 BMI result Body Mass Index 27.1 Tobacco/Smoking Status: Tobacco use Status Tobacco use date assessed 09/15/24 09/15/24 09:55 Patient Tobacco Use Status Never used Tobacco 09/15/24 09:55 e-Cigarette/Vaping Use Never Used 09/15/24 09:55 PHQ-9: PHQ-9 Score PHQ-9: Total score 0 09/15/24 10:15 Depression Screening Interpretation: Negative Thrive Assessment: Date of Thrive Assessment Date Thrive assessed 09/15/24 09/15/24 09:55 Currently or been in a relationship where the following occur: I choose not to answer Const General: No confusion Orientation/consciousness: No confusion HENMT Head: Yes normocephalic Ears: external ears normal and TM's normal bilaterally Face and sinus: Yes normal facial exam Mouth: moist mucous membranes Throat: Yes tonsils normal Eyes Conjunctivae: conjunctivae normal Pupils: Equal, round and reactive pupils present and Pupil accommodation reflex normal Direct Ophthalmoscopy: normal light reflex Neck Neck: No lymphadenopathy Thyroid: Thyroid normal Chest Chest palpation & inspection: normal inspection of the chest Resp Effort & Inspection: normal respiratory effort and no audible wheezes Auscultation: clear to auscultation bilaterally, no crackles, no wheezes and lung sounds not diminished Cardio Rate: regular rate Rhythm: regular rhythm Peripheral pulses: radial pulses present and dorsalis pedis present GI Palpation (GI): no masses Auscultation: normal bowel sounds and normoactive bowel sounds Rectal Exam - Female: deferred Skin General skin exam: no rashes or lesions noted Rashes: no rashes Neuro General: No confusion Cranial nerves: Yes Equal, round and reactive pupils present and Yes Normal hearing present Cognition (Neuro): normal cognition Gait exam (Neuro): Normal gait present Motor exam (neuro): 5/5 motor strength present throughout Deep tendon reflexes (DTR's): Right brachioradialis reflex intensity grade: 2+, Left brachioradialis reflex intensity grade: 2+, Right patellar reflex intensity grade: 2+ and Left patellar reflex intensity grade: 2+ Extrem General: No edema Coding Level of Care Code Est Pt Prev Care 40-64y(60485) Diagnoses Annual physical exam Z00.00 Adnexal mass N94.89 Hypercholesterolemia E78.00 Overweight (BMI 25.0-29.9) E66.3 Colon cancer screening Z12.11 Assessment & Plan Assessment & Plan (1) Annual physical exam: Code(s): Z00.00 - Encounter for general adult medical examination without abnormal findings Category: Medical Plan: Patient is advised to eat healthy, keep well hydrated, keep active and have adequate sleep. (2) Adnexal mass: Comment: Pelvic ultrasound showing avoid hypoechoic structure in the left adnexa 2.9 cm Code(s): N94.89 - Other specified conditions associated with female genital organs and menstrual cycle Category: Medical Plan: Pelvic ultrasound has resulted showing as an adnexal mass MR requested as well as gynecological referral. (3) Hypercholesterolemia: Code(s): E78.00 - Pure hypercholesterolemia, unspecified Category: Medical Plan: Avoid fried foods, chicken skin, eggs, butter margarine, pastries and meat. Be it pork or beef they have a lot of cholesterol on atorvastatin 20 mg once a day (4) Overweight (BMI 25.0-29.9): Code(s): E66.3 - Overweight Category: Medical Plan: Diet and exercise (5) Colon cancer screening: Code(s): Z12.11 - Encounter for screening for malignant neoplasm of colon Category: Medical Plan: Reminded about colonoscopy Orders: Orders Complete Blood Count Auto Diff Today E78.00 - Pure hypercholesterolemia, unspecified Comprehensive Met. Panel Today E78.00 - Pure hypercholesterolemia, unspecified Free T4 (Free Thyroxine) Today E78.00 - Pure hypercholesterolemia, unspecified Vitamin D 25-OH Total Today E78.00 - Pure hypercholesterolemia, unspecified Thyroid Stimulating Hormone Today E78.00 - Pure hypercholesterolemia, unspecified Lipid Panel Today E78.00 - Pure hypercholesterolemia, unspecified Vitamin B12 and Folate Today E78.00 - Pure hypercholesterolemia, unspecified
[2024-09-15 09:51] VITALS: BP 120/68; PULSE 73; TEMP 36.3; O2SAT 97; BMI 27.1
== END 2024-09-15 10:27 | disposition home or self-care (01) ==
LOC: HO.HMCH 09:39
PROVIDERS: PCP Internal Medicine; Visit Provider Internal Medicine
DX: Z00.00 Encounter for general adult medical examination without abnormal findings (principal); N94.89 Other specified conditions associated with female genital organs and menstrual cycle; E78.00 Pure hypercholesterolemia, unspecified; E66.3 Overweight; Z12.11 Encounter for screening for malignant neoplasm of colon

== ENCOUNTER → 2024-09-15 09:39 | Outpatient (BNVA) | payer OTHER, SELFPAY | PROVIDERS: PCP Internal Medicine; Visit Provider Internal Medicine | DX: Z13.89 Encounter for screening for other disorder (principal) ==